=== PATIENT | female | born 1985 | race Asian ===

== ENCOUNTER 2017-01-18 18:48 | Emergency (ER) | payer BC ==
[~2017-01-18] VITALS: Ht 162.6 cm; Wt 68.0 kg
[2017-01-18 19:21] VITALS: BP 127/91
--- NOTE | 2017-01-18 19:21 | NUR ---
BIBSELF, PT STATES SHE WAS RUNNING AND SLIPPED AND HIT THE LEFT SIDE OF HER HEAD ON THE STAIRS AND HAS A LAC, PT DENIES LOC. PT AOX4 RR EVEN AND UNLABORED. NO SOB NOTED. NAD NOTED. NO NVD AT THIS TIME. PT NOT DIAPHORETIC. PT GOWNED WAITING FOR MD HARTMAN.
[2017-01-18] MEDS ORDERED: TDAP [DIPH/PERTUSSIS/TET] 0.5 ML VIAL IM STA (19:24)
--- NOTE | 2017-01-18 19:24 | NUR ---
PAC NUSHA AT BEDSIDE FOR EVAL.
[2017-01-18] MEDS ORDERED: TDAP [DIPH/PERTUSSIS/TET] 0.5 ML VIAL IM ONE (19:25)
--- NOTE | 2017-01-18 20:00 | NUR ---
PAC NUSHA AT BEDSIDE FOR LAC REPAIR
== END 2017-01-18 20:26 | disposition home or self-care (01) ==
LOC: ER 18:50
DX: S01.01XA Laceration without foreign body of scalp, initial encounter (principal); W01.0XXA Fall on same level from slipping, tripping and stumbling without subsequent striking against object, initial encounter; Y93.02 Activity, running; Y92.9 Unspecified place or not applicable; Y99.9 Unspecified external cause status
CPT/HCPCS: 12001; 90471; 90715; 99283; A4606; A6402; Z7610